=== PATIENT | male | born 1970 | race Caucasian/White ===

== ENCOUNTER 2022-05-10 19:30 | Emergency (ER) | payer OTHER ==
[2022-05-10 20:21] LABS: RED BLOOD COUNT 4.93 M/UL (4.20-5.50); WHITE BLOOD COUNT 8.6 K/UL (4.5-11.0)
[2022-05-10 20:41] LABS: BUN/CREATININE RATIO 12 (0-10)
== END 2022-05-10 23:55 | disposition home or self-care (01) ==
LOC: ER1 19:30
PROVIDERS: Family Medicine
DX: R00.2 Palpitations (principal)
CPT/HCPCS: 71045; 80053; 82550; 82553; 84484; 85025; 99285